=== PATIENT | male | born 1960 | race Two or more races ===

== ENCOUNTER 2018-09-05 17:28 | Emergency (ER) | payer MEDICAID, OTHER ==
[~2018-09-05] VITALS: Ht 177.8 cm; Wt 111.1 kg
[~2018-09-05 17:28] MED LIST: ALLOPURINOL; ASPI-696; CENTRUM SILVER; MELOXICAM; METF10002; TADA5TAB2; TESTOSTERONE; VALTREX; VITAMIN D; ZONI50CA2 PO
[2018-09-05 17:42] VITALS: BP 147/90
--- NOTE | 2018-09-05 18:00 | NUR ---
"SMASHED MY FINGER" WITH A CONCRETE BLOCK. NO OBVIOUS DEFORMITY NOTED. BLANCHABLE.
--- NOTE | 2018-09-05 18:30 | NUR ---
XRAY AT BEDSIDE
[2018-09-05] MEDS ORDERED: CEPHALEXIN 500 MG CAPSULE ONE (18:51)
[2018-09-05] MEDS ORDERED: CEPHALEXIN 500 MG CAPSULE PO ONE (19:00)
--- NOTE | 2018-09-05 19:01 | NUR ---
MEDICATED PER EMAR EDUCATED ON F/U, WOUND CARE
== END 2018-09-05 19:03 | disposition home or self-care (01) ==
LOC: ED 18:50
DX: S62.667B Nondisplaced fracture of distal phalanx of left little finger, initial encounter for open fracture (principal); E11.9 Type 2 diabetes mellitus without complications; I10 Essential (primary) hypertension; X58.XXXA Exposure to other specified factors, initial encounter; Y93.89 Activity, other specified; Y92.009 Unspecified place in unspecified non-institutional (private) residence as the place of occurrence of the external cause; Y99.8 Other external cause status
CPT/HCPCS: 29130; 99283